=== PATIENT | male | born 1995 | race Caucasian/White ===

== ENCOUNTER 2025-02-06 18:00 | Emergency (ER) | payer BC ==
[2025-02-06] MEDS: Sodium Chloride 0.9% 1,000 ML IV ONE ×2 (18:24→20:13)
[2025-02-06] MEDS: Ondansetron 4 MG/2 ML SDV IVPUSH ONE (18:26)
[2025-02-06] MEDS: Morphine 4 MG/ML Syringe IVPUSH ONE (18:26)
[2025-02-06] MEDS: Ketorolac 30 MG/ML SDV IVPUSH ONE (18:27)
[2025-02-06 18:33] LABS: BASOPHILS ABSOLUTE AUTO 0.05 K/uL (0.00-0.20); BASOPHILS PERCENT AUTO 0.4 % (0.0-1.0); EOSINOPHILS ABSOLUTE AUTO 0.15 K/uL (0.00-0.45); EOSINOPHILS PERCENT AUTO 1.3 % (0.0-6.0); HEMATOCRIT 43.3 % (42.0-52.0); HEMOGLOBIN 14.6 g/dL (14.0-18.0); IMMATURE GRAN ABSOLUTE AUTO 0.02 K/uL (0.00-0.05); IMMATURE GRAN PERCENT AUTO 0.2 % (0.0-0.4); LYMPHOCYTES ABSOLUTE AUTO 4.46 K/uL (1.00-4.80); LYMPHOCYTES PERCENT AUTO 37.5 % (24.0-44.0); MEAN CORPUSCULAR HEMOGLOBIN 28.8 pg (28.0-32.0); MEAN CORPUSCULAR HGB CONC 33.7 g/dL (32.0-36.0); MEAN CORPUSCULAR VOLUME 85.4 fL (83.0-99.0); MEAN PLATELET VOLUME 9.2 fL (9.4-12.4); MONOCYTES ABSOLUTE AUTO 0.76 K/uL (0.00-0.80); MONOCYTES PERCENT AUTO 6.4 % (0.0-8.0); NEUTROPHILS ABSOLUTE AUTO 6.45 K/uL (1.80-7.70); NEUTROPHILS PERCENT AUTO 54.2 % (41.0-71.0); PLATELET COUNT,PLT 209 K/uL (150-400); RED BLOOD CELL COUNT 5.07 M/uL (4.52-5.90); WHITE BLOOD CELL COUNT,WBC 11.89 K/uL (3.9-11.3)
[2025-02-06] MEDS: HYDROmorphone 0.5 MG/0.5 ML Syringe IVPUSH ONE ×2 (18:44→20:14)
[2025-02-06 18:57] LABS: A/G RATIO 1.3 (0.9-1.6); ALBUMIN 4.5 g/dL (3.4-5.0); BILIRUBIN TOTAL 0.5 mg/dL (0.2-1.0); CALCIUM 11.7 mg/dL (8.5-10.1); CARBON DIOXIDE,CO2 27.8 mmol/L (21.0-32.0); EST CRCL DRUG DOSING (CG) 118.56 mL/min
[2025-02-06] MEDS: Iopamidol 755 MG/ML 500 ML Multipack Bottle IVPUSH ONE (19:15)
[2025-02-06 19:29] LABS: APPEARANCE,URINE CLOUDY; BILIRUBIN,URINE NEGATIVE (NEGATIVE); COLOR,URINE YELLOW; GLUCOSE,URINE NEGATIVE (NEGATIVE); KETONES,URINE 40 mg/dL (NEGATIVE); LEUKOCYTE ESTERASE,URINE NEGATIVE (NEGATIVE); NITRITE,URINE NEGATIVE (NEGATIVE); OCCULT BLOOD,URINE LARGE (NEGATIVE); PH,URINE 8.5 (5.0-8.0); PROTEIN,URINE TRACE mg/dL (NEGATIVE); UROBILINOGEN,URINE 0.2 EU/dL (<2.0)
[2025-02-06 19:29] LABS: LACTIC ACID 3.6 mmol/L (0.4-2.0)
[2025-02-06 19:35] LABS: AMORPHOUS SEDIMENT,URINE MODERATE (NEGATIVE); BACTERIA,URINE FEW (NEGATIVE); EPITHELIAL CELLS,URINE RARE (NONE-FEW); RBC,URINE 50-55 (0-2/HPF); WBC,URINE 0-2 (0-5/HPF)
[2025-02-06] MEDS: droPERidol 2.5 MG/ML SDV IVPUSH ONE (21:02)
[2025-02-06] MEDS: Tamsulosin 0.4 MG Cap.ER PO ONE (21:43)
== END 2025-02-06 22:28 | disposition home or self-care (01) ==
LOC: MW.ED 18:00
DX: N13.2 Hydronephrosis with renal and ureteral calculous obstruction (principal); D18.09 Hemangioma of other sites; Z75.3 Unavailability and inaccessibility of health-care facilities; Z88.0 Allergy status to penicillin; Z79.899 Other long term (current) drug therapy
CPT/HCPCS: 36415; 74177; 76870; 80053; 81001; 83605; 83690; 85025; 93976; 96361; 96374; 96375; 96376; 99284; A9270; J1790; J1885; J2270; J2405; J7030; Q9967; 99283